=== PATIENT | female | born 1970 ===

== ENCOUNTER 2019-11-05 21:21 | Emergency (ER) | payer SELFPAY ==
[~2019-11-05] VITALS: Ht 160 cm; Wt 60.6 kg
[2019-11-05] MEDS ORDERED: normal saline 1000ml 1,000 ML IV ONE (23:05)
[2019-11-05] MEDS ORDERED: ketorolac trometh. 30mg/ml inj. IV ONE (23:05)
[2019-11-05] MEDS ORDERED: acetaminophen 325mg tablet PO ONE (23:05)
[2019-11-05 23:33] LABS: ALBUMIN 2.9 G/DL (3.4-5.0); ANION GAP 10 (8-16); BLOOD UREA NITROGEN 13 MG/DL (7-18); BUN/CREATININE RATIO 11.5 (6.6-38.0); CALCIUM 7.6 MG/DL (8.5-10.1); CHLORIDE 108 MMOL/L (99-107); CREATININE 1.13 MG/DL (0.40-0.90); GLUCOSE 100 MG/DL (70-104); SODIUM 139 MMOL/L (135-145); TOTAL CARBON DIOXIDE 21.3 MMOL/L (24-32); eGFR 52 ML/MIN
[2019-11-06] MEDS ORDERED: potassium Cl 20 mEq SR tablet PO STA (00:22)
[2019-11-06] MEDS ORDERED: magnesium oxide 400mg tablet PO ONE (00:25)
[2019-11-06 00:49] VITALS: BP 115/71
== END 2019-11-06 00:56 | disposition home or self-care (01) ==
LOC: ER 21:21
DX: R51 Headache (principal); E87.6 Hypokalemia; R11.10 Vomiting, unspecified; M54.9 Dorsalgia, unspecified; F15.90 Other stimulant use, unspecified, uncomplicated; Z86.73 Personal history of transient ischemic attack (TIA), and cerebral infarction without residual deficits; Z59.0 Homelessness; Z88.8 Allergy status to other drugs, medicaments and biological substances
CPT/HCPCS: 36415; 70450; 80048; 96374; 99284; J1885; J7030